=== PATIENT | male | born 1945 | race American Indian/Alaskan Native ===

== ENCOUNTER 2017-04-19 07:16 | Day surgery (SDC) | payer MEDICARE ==
[2017-04-12 09:55] VITALS: BMI 32.9
[2017-04-19] MEDS: Ciprofloxacin 400mg/200ml D5W 400 MG/200 ML BAG IVPB ONE ×2 (09:29→10:12)
[2017-04-19] MEDS: Gentamicin 160 MG in Sodium Chloride 0.9% 100 ML IVPB ONE ×2 (09:29→10:26)
[2017-04-19] MEDS ORDERED: Lactated Ringer's 1,000 ML IV ONE ×2 (09:29)
[2017-04-19] MEDS ORDERED: Propofol 10 mg/ml Inj (20 ML) ONE (10:05)
--- NOTE | 2017-04-19 11:05 | PCM.SURG1 ---
Surgeon's Initial Post Op Note - Surgeon's Notes Surgeon: Bakari Amusement Ride Operator: Kathy Type of Anesthesia: General LMA Anesthesia Administered By: Staff Pre-Operative Diagnosis: BPH URINARY RETENTION DUE TO BPH Operative Findings: SAME Post-Operative Diagnosis: SAME Operation Performed: TULAP Specimen/Specimens Removed: NA Estimated Blood Loss: EBL {In ML}: 20 Blood Products Given: N/A Drains Used: No Drains, Chest Tubes Post-Op Condition: Good Date of Surgery/Procedure: 04/19/17 Time of Surgery/Procedure: 11:05
[2017-04-19] MEDS ORDERED: HYDROmorphone 0.5 mg/0.5 ml ISec IVP PRN (11:12)
[2017-04-19 13:10] VITALS: BP 144/90; PULSE 60; RESP 18; TEMP 98; O2SAT 98
--- NOTE | 2017-04-19 13:40 | OP ---
PREOPERATIVE DIAGNOSES: Benign prostatic hypertrophy with urinary retention. POSTOPERATIVE DIAGNOSES: Benign prostatic hypertrophy with urinary retention. PROCEDURE: Transurethral laser ablation of the prostate (GreenLight laser prostatectomy.) FINDINGS: Very large prostate with trilobar hypertrophy and a small medium lobe causing significant outlet obstruction and compensatory trabeculation of bladder. SURGEON: Art Villegas MD DESCRIPTION OF PROCEDURE: Prior to procedure, a detailed informed consent was obtained. The patient is aware of the risks and limitations of the procedure and he is aware that the procedure may not successfully allow him to urinate and another procedure may be necessary. He is willing to accept these risks. He signed the consent, was brought into the room and a time-out was taken according to the rules and regulations of [facility]. The patient was resectoscoped with a laser cystoscope and previous findings were confirmed. The laser fiber and resectoscope was inserted within the sheath and the vaporization of prostate began at 11 o'clock just distal to the bladder neck and carried down to 6 o'clock and carried, this was continued all the way to just proximal to the verumontanum. The left lateral lobe, the roof of the tissue and the small median lobe were vaporized in a similar fashion. No injury occurred to the ureteral orifices, bladder, or external sphincter. The patient tolerated this procedure very well. The #20 two-way 5 mL catheter was inserted and drained normal urine and fluid. The patient tolerated this well, was sent to recovery room in good condition where he will be continued on Flomax and Avodart and followed up in our office tomorrow at 3 p.m. for Calderon removal. Art Villegas MD
== END 2017-04-19 14:46 | disposition home or self-care (01) ==
LOC: C.SDS 07:16
PROVIDERS: ATTEND Urology
DX: N40.1 Benign prostatic hyperplasia with lower urinary tract symptoms (principal); R33.8 Other retention of urine
CPT/HCPCS: 52648; 82948; A4322; A4358; J0744; J1170; J1580; J7120